=== PATIENT | female | born 2000 | race Caucasian/White ===

== ENCOUNTER 2023-04-05 17:58 | Emergency (ER) | payer OTHER ==
[2023-04-05 18:22] VITALS: TEMP 97.6
[2023-04-05] MEDS ORDERED: Sodium Chloride 0.9% 1000 ML 1,000 ML IV STA (18:51)
[2023-04-05] MEDS ORDERED: Sodium Chloride 0.9% 1000 ML 1,000 ML ONE (19:14)
[2023-04-05 19:17] LABS: Absolute Neutrophil Ct (ANC) 11.35 x10^3/uL (1.4-6.9); BASOPHIL % 0.3 % (0.0-0.4); Basophil (Absolute #) 0.04 x10^3/uL (0-0.4); Eosinophil % 1.1 % (0.00-5.0); Eosinophil (Absolute #) 0.17 x10^3/uL (0-0.5); Hematocrit 35.8 % (35-47); Hemoglobin 11.7 g/dL (12.0-16.0); IMMATURE GRAN # 0.35 x10^3u/L (0.00-0.03); IMMATURE GRAN % 2.4 % (0.00-0.4); Lymphocyte (Absolute #) 2.28 x10^3/uL (1.0-4.6); Lymphocytes % 15.4 % (24.0-44.0); Mean Cell Volume 90.2 fL (78-100); Mean Corpuscular Hemoglobin 29.5 pg (26-32); Mean Corpuscular Hgb Concent. 32.7 g/dL (32-36); Mean Platelet Volume 8.8 fL (7.5-11.0); Monocyte (Absolute #) 0.64 x10^3/uL (0.0-1.3); Monocytes % 4.3 % (0.0-12.0); Neutrophil % 76.5 % (36.0-66.0); Platelet Count 279 x10^3/uL (150-450); Red Blood Count 3.97 x10^6/uL (4.1-5.4); Red Cell Distribution Width 12.8 % (11.5-14.0); White Blood Count 14.8 x10^3/uL (4.0-10.5)
[2023-04-05 19:32] LABS: ALBUMIN 3.6 g/dL (3.5-5.0); ALKALINE PHOSPHATASE 73 U/L (38-126); ANION GAP 11.2 MEQ/L (5-15); BLOOD UREA NITROGEN 9 mg/dL (7-17); CHLORIDE 104 mmol/L (98-107); Calcium 8.8 mg/dL (8.4-10.2); Carbon Dioxide 25 mmol/L (22-30); Creatinine 1 0.55 mg/dL (0.52-1.04); EST GLOMERULAR FILTRATION RATE > 60.0 ML/MIN; Glucose 82 mg/dL (74-106); MAGNESIUM 1.8 mg/dL (1.6-2.3); Potassium 4.3 mmol/L (3.5-5.1); SGOT/AST 21 U/L (14-36); SGPT/ALT 18 U/L (0-35); SODIUM 136 mmol/L (137-145); Total Protein 6.7 g/dL (6.3-8.2)
[2023-04-05 19:37] LABS: Amphetamine,Urine NEGATIVE (NEGATIVE); Barbiturate,Urine NEGATIVE (NEGATIVE); Benzodiazepine,Urine NEGATIVE (NEGATIVE); Cocaine,Urine NEGATIVE (NEGATIVE); Methadone,Urine NEGATIVE (NEGATIVE); Opiate,Urine NEGATIVE (NEGATIVE); PCP,Urine NEGATIVE (NEGATIVE); THC,Urine POSITIVE (NEGATIVE)
[2023-04-05 19:40] VITALS: O2SAT 99
[2023-04-05 19:45] LABS: Appearance Cloudy (Clear); Bacteria Few /HPF (None Seen); Bilirubin Negative (Negative); Blood Negative (Negative); Epithelial Cells Moderate /HPF (None Seen); Glucose, Urine Negative (Negative); Ketones Negative (Negative); Leukocyte Esterase Small (Negative); Nitrite Negative (Negative); Protein,Urine Dip Trace (Negative); RBC 0-2 /HPF (0-5); WBC 21-50 /HPF (0-5)
[2023-04-05 19:46] LABS: ADD URINE CULTURE? YES (NO)
--- NOTE | 2023-04-05 20:11 | ERPHSYRPT ---
- History of Present Illness Time Seen by Provider: 04/05/23 18:15 Source: patient Exam Limitations: no limitations Patient Subjective Stated Complaint: Pt states that she had been outside and came in for about 15 min and was in the kitchen talking to her grandma helping h er [employer] school cafeteria when she turned around and everything went black and then she woke up on the floor with her grandparents over her Triage Nursing Assessment: Pt brought to the ER by her boyfriend, jeronimo wnl, rates head pain as 6/10, pt hit the back of her head on the floor when she passed out, pt states that she used to have syncopal episodes from age [age] and she lost weight and they had just stopped and she did have various testing done but no reasoning was found, pt states that she is now gaining weight due to the and is unsure if she is starting to have them again or not, states that she is having some pain in her lower left lateral abdominal side that was not there before, pulses normal, skin n/w/d, pt states that her grandmother took her blood pressure after she came to 111/56, pt's OB is Dr. Carr at [facility] Physician History: 22 years old 1 para 0 at 28 weeks gestation presented in the ER with chief complaint of syncopal episode. Patient reports she was outside, went in and was talking to her grandma in the kitchen and all of a sudden she started to fail blackening in front of her eyes and passed out. She did hit her head on the way down. She had no seizure-like activity noticed by family. She is complaining of dull aching occipital area headache on presentation which is improved. Denies any neck pain. No numbness tingling or focal weakness. Also complaining of some left hip area pain but no difficulty ambulation. Denies any vaginal bleeding or discharge. No abdominal pain otherwise. No nausea or vomiting. Denies any chest pain palpitations or shortness of breath before or after this episode. Patient does report smoking cigarettes and marijuana but no other drugs/alcohol. Allergies/Adverse Reactions: No Known Drug Allergies Allergy (Verified 04/05/23 18:22) Hx Influenza Vaccination/Date Given: No Hx Pneumococcal Vaccination/Date Given: No Travel Risk - International Travel Have you traveled outside of the country in past 3 weeks: No - Coronavirus Screening Are you exhibiting any of the following symptoms?: No Close contact with a COVID-19 positive Pt in past 14-21 Days: No - Vaccine Status Have you recieved a Covid-19 vaccination: No - Review of Systems Constitutional: No Symptoms Eyes: No Symptoms Ears, Nose, & Throat: No Symptoms Respiratory: No Symptoms Cardiac: No Symptoms Abdominal/Gastrointestinal: No Symptoms Genitourinary Symptoms: No Symptoms Musculoskeletal: Fall Skin: No Symptoms Psychological: No Symptoms Endocrine: No Symptoms Hematologic/Lymphatic: No Symptoms - Past Medical History Pertinent Past Medical History: Yes Cardiac History: Hypertension Psycho-Social History: Anxiety, Depression - Past Surgical History Past Surgical History: Yes - Social History Smoking Status: Current every day smoker Exposure to second hand smoke: Yes Drug Use: marijuana Patient Lives Alone: No - Female History Hx Now: Yes Gestational Age: 28.2 - Nursing Vital Signs Nursing Vital Signs: Initial Vital Signs Temperature 97.6 F 04/05/23 18:04 Pulse Rate 91 H 04/05/23 18:04 Blood Pressure 105/73 04/05/23 18:04 O2 Sat by Pulse Oximetry 98 04/05/23 18:04 Pain Scale Pain Intensity 6 - Physical Exam General Appearance: no apparent distress, alert Eye Exam: PERRL/EOMI, eyes nml inspection Ears, Nose, Throat Exam: normal ENT inspection, TMs normal, pharynx normal, moist mucous membranes Neck Exam: normal inspection, non-tender, supple, full range of motion, No meningismus, No limited range of motion, No midline tenderness Respiratory Exam: normal breath sounds, lungs clear Cardiovascular Exam: regular rate/rhythm, normal heart sounds Gastrointestinal/Abdomen Exam: soft, normal bowel sounds, No tenderness Back Exam: normal inspection, normal range of motion Neurologic Exam: alert, oriented x 3, cooperative, java groovy developer II-XII nml as tested, normal mood/affect, nml cerebellar function, nml station & gait, sensation nml, No motor deficits Skin Exam: normal color SpO2 Interpretation: normal SpO2: 99 O2 Delivery: Room Air - Course EKG Interpreted by Me: RATE ([id number]), Sinus Rhythm, NORMAL AXIS, NORMAL QRS Ordered Tests: Active Orders 24 hr Category Date Time Status Auto Air Conditioning Installer STAT Care 04/05/23 18:52 Completed EKG-ER Only STAT Care 04/05/23 18:51 Completed IV Insertion STAT Care 04/05/23 18:51 Completed Orthostatic Vital Signs STAT Care 04/05/23 18:51 Completed CHEST 1 VIEW (PORTABLE) Stat Exams 04/05/23 18:52 Completed HEAD WITHOUT CONTRAST [CT] Stat Exams 04/05/23 18:52 Completed OB LIMITED [US] Stat Exams 04/05/23 18:53 Completed CBC W DIFF Stat Lab 04/05/23 19:10 Completed CMP Stat Lab 04/05/23 19:10 Completed CULTURE,URINE Stat Lab 04/05/23 19:14 Received MAGNESIUM Stat Lab 04/05/23 19:10 Completed TROPONIN Q4H Lab 04/05/23 19:10 Completed UA W/RFX UR CULTURE Stat Lab 04/05/23 19:14 Completed Urine Triage Profile Stat Lab 04/05/23 19:14 Completed Medication Summary Discontinued Medications Generic Name Dose Route Start Last Admin Trade Name Freq PRN Reason Stop Dose Admin Cephalexin HCl 500 mg 04/05/23 20:48 04/05/23 20:51 Cephalexin Mh500 Mg Capsule PO 04/05/23 20:49 500 mg STAT ONE Administration Cephalexin HCl Confirm 04/05/23 20:49 Cephalexin Mh500 Mg Capsule Administered 04/05/23 20:50 Dose 500 mg .ROUTE .STK-MED ONE Sodium Chloride 1,000 mls @ 999 mls/hr 04/05/23 18:51 04/05/23 20:17 Sodium Chloride 0.9% 1000 Ml IV 04/05/23 19:51 Infused .Q1H1M STA Infusion Sodium Chloride Confirm 04/05/23 19:14 Sodium Chloride 0.9% 1000 Ml Administered 04/05/23 19:15 Dose 1,000 mls @ ud .ROUTE .STK-MED ONE Lab/Rad Data: Laboratory Result Diagrams 04/05/23 19:10 04/05/23 19:10 Laboratory Results 04/05/23 04/05/23 04/05/23 Range/Units 19:14 19:14 19:10 WBC (4.0-10.5) x10^3/uL RBC (4.1-5.4) x10^6/uL Hgb (12.0-16.0) g/dL Hct (35-47) % MCV (78-100) fL MCH (26-32) pg MCHC (32-36) g/dL RDW (11.5-14.0) % Plt Count (150-450) x10^3/uL MPV (7.5-11.0) fL Gran % (36.0-66.0) % Immature Gran % (Auto) (0.00-0.4) % Nucleat RBC Rel Count (0.00-0.1) % Eos # (Auto) (0-0.5) x10^3/uL Immature Gran # (Auto) (0.00-0.03) x10^3u/L Absolute Lymphs (auto) (1.0-4.6) x10^3/uL Absolute Monos (auto) (0.0-1.3) x10^3/uL Absolute Nucleated RBC (0.00-0.01) x10^3u/L Lymphocytes % (24.0-44.0) % Monocytes % (0.0-12.0) % Eosinophils % (0.00-5.0) % Basophils % (0.0-0.4) % Absolute Granulocytes (1.4-6.9) x10^3/uL Basophils # (0-0.4) x10^3/uL Sodium (137-145) mmol/L Potassium (3.5-5.1) mmol/L Chloride (98-107) mmol/L Carbon Dioxide (22-30) mmol/L Anion Gap (5-15) MEQ/L BUN (7-17) mg/dL Creatinine (0.52-1.04) mg/dL Estimated GFR ML/MIN Glucose (74-106) mg/dL Calcium (8.4-10.2) mg/dL Magnesium (1.6-2.3) mg/dL Total Bilirubin (0.2-1.3) mg/dL AST (14-36) U/L ALT (0-35) U/L Alkaline Phosphatase (38-126) U/L Troponin I < 0.012 (0.000-0.034) ng/mL Serum Total Protein (6.3-8.2) g/dL Albumin (3.5-5.0) g/dL Urine Color Yellow (Yellow) Urine Appearance Cloudy A (Clear) Urine pH 6.0 (4.6-8.0) Ur Specific [place] 1.020 (1.005-1.030) Urine Protein Trace A (Negative) Urine Glucose (UA) Negative (Negative) mg/dL Urine Ketones Negative (Negative) Urine Blood Negative (Negative) Urine Nitrite Negative (Negative) Urine Bilirubin Negative (Negative) Urine Urobilinogen 1.0 A (0.2) mg/dL Ur Leukocyte Esterase Small A (Negative) U Hyaline Cast (Auto) 3-5 A (0-2) /LPF Urine Microscopic RBC 0-2 (0-5) /HPF Urine Microscopic WBC 21-50 A (0-5) /HPF Ur Epithelial Cells Moderate A (None Seen) /HPF Urine Bacteria Few A (None Seen) /HPF Urine Culture Reflexed YES (NO) Urine Opiates Level NEGATIVE (NEGATIVE) Ur Methadone NEGATIVE (NEGATIVE) Urine Barbiturates NEGATIVE (NEGATIVE) Ur Phencyclidine (PCP) NEGATIVE (NEGATIVE) Urine Amphetamine NEGATIVE (NEGATIVE) U Benzodiazepine Level NEGATIVE (NEGATIVE) Urine Cocaine NEGATIVE (NEGATIVE) Urine Marijuana (THC) POSITIVE (NEGATIVE) 04/05/23 04/05/23 Range/Units 19:10 19:10 WBC 14.8 H (4.0-10.5) x10^3/uL RBC 3.97 L (4.1-5.4) x10^6/uL Hgb 11.7 L (12.0-16.0) g/dL Hct 35.8 (35-47) % MCV 90.2 (78-100) fL MCH 29.5 (26-32) pg MCHC 32.7 (32-36) g/dL RDW 12.8 (11.5-14.0) % Plt Count 279 (150-450) x10^3/uL MPV 8.8 (7.5-11.0) fL Gran % 76.5 H (36.0-66.0) % Immature Gran % (Auto) 2.4 H (0.00-0.4) % Nucleat RBC Rel Count 0.0 (0.00-0.1) % Eos # (Auto) 0.17 (0-0.5) x10^3/uL Immature Gran # (Auto) 0.35 H (0.00-0.03) x10^3u/L Absolute Lymphs (auto) 2.28 (1.0-4.6) x10^3/uL Absolute Monos (auto) 0.64 (0.0-1.3) x10^3/uL Absolute Nucleated RBC 0.00 (0.00-0.01) x10^3u/L Lymphocytes % 15.4 L (24.0-44.0) % Monocytes % 4.3 (0.0-12.0) % Eosinophils % 1.1 (0.00-5.0) % Basophils % 0.3 (0.0-0.4) % Absolute Granulocytes 11.35 H (1.4-6.9) x10^3/uL Basophils # 0.04 (0-0.4) x10^3/uL Sodium 136 L (137-145) mmol/L Potassium 4.3 (3.5-5.1) mmol/L Chloride 104 (98-107) mmol/L Carbon Dioxide 25 (22-30) mmol/L Anion Gap 11.2 (5-15) MEQ/L BUN 9 (7-17) mg/dL Creatinine 0.55 (0.52-1.04) mg/dL Estimated GFR > 60.0 ML/MIN Glucose 82 (74-106) mg/dL Calcium 8.8 (8.4-10.2) mg/dL Magnesium 1.8 (1.6-2.3) mg/dL Total Bilirubin 0.30 (0.2-1.3) mg/dL AST 21 (14-36) U/L ALT 18 (0-35) U/L Alkaline Phosphatase 73 (38-126) U/L Troponin I (0.000-0.034) ng/mL Serum Total Protein 6.7 (6.3-8.2) g/dL Albumin 3.6 (3.5-5.0) g/dL Urine Color (Yellow) Urine Appearance (Clear) Urine pH (4.6-8.0) Ur Specific [place] (1.005-1.030) Urine Protein (Negative) Urine Glucose (UA) (Negative) mg/dL Urine Ketones (Negative) Urine Blood (Negative) Urine Nitrite (Negative) Urine Bilirubin (Negative) Urine Urobilinogen (0.2) mg/dL Ur Leukocyte Esterase (Negative) U Hyaline Cast (Auto) (0-2) /LPF Urine Microscopic RBC (0-5) /HPF Urine Microscopic WBC (0-5) /HPF Ur Epithelial Cells (None Seen) /HPF Urine Bacteria (None Seen) /HPF Urine Culture Reflexed (NO) Urine Opiates Level (NEGATIVE) Ur Methadone (NEGATIVE) Urine Barbiturates (NEGATIVE) Ur Phencyclidine (PCP) (NEGATIVE) Urine Amphetamine (NEGATIVE) U Benzodiazepine Level (NEGATIVE) Urine Cocaine (NEGATIVE) Urine Marijuana (THC) (NEGATIVE) - Progress Progress: improved, re-examined Progress Note: 04/05/23 20:13 22 years old 1 para 0 at 28 weeks gestation presented in the ER with chief complaint of syncopal episode. Patient reports she was outside, went in and was talking to her grandma in the kitchen and all of a sudden she started to fail blackening in front of her eyes and passed out. She did hit her head on the way down. She had no seizure-like activity noticed by family. She is complaining of dull aching occipital area headache on presentation which is improved. Denies any neck pain. No numbness tingling or focal weakness. Also complaining of some left hip area pain but no difficulty ambulation. Denies any vaginal bleeding or discharge. No abdominal pain otherwise. No nausea or vomiting. Denies any chest pain palpitations or shortness of breath before or after this episode. Patient does report smoking cigarettes and marijuana but no other drugs/alcohol. 04/05/23 20:52 Patient has nonfocal neuro exam throughout her stay in the ER. No tenderness in cervical spines. No abdominal tenderness. Orthostatics negative. Given fluids, on reevaluation feeling better. Patient work-up showed white count of 14, fairly unremarkable chemistry. Does have UTI and started on Keflex. Chest x-ray negative for any acute cardiopulmonary findings reviewed by me, official report is pending. Ultrasound OB per preliminary report has single IUP with good heart tones and no signs of abruption/previa or any other acute findings. Patient chest x-ray and CT head are obtained after informed consent and shielded abdomen. CT head is pending, patient does not want to stay in the hospital at all. I do not know the exact cause of her syncope which needs further eval uation. She wants to leave without the results of CT head. Patient states I would follow-up with my OB and primary care and will return if has any worsening. She is not confused or altered at all. I have discussed in detail about risk of leaving without full work-up and without knowing any reason for this syncopal episode which would not delay only the diagnosis but also could lead to worsening of condition and could be harmful for her . She understands but wants to leave AGAINST MEDICAL ADVICE. She signed paperwork and left in stable condition. I will still send prescription of Keflex to her pharmacy. She is advised to return to ER for any worsening. Counseled pt/family regarding: lab results, diagnosis, need for follow-up, rad results, smoking cessation Medical Desision Making - Independent Historian Additional History obtained from: Spouse - Diagnostic Testing Diagnostic test were ordered, analyzed, and reviewed by me: Yes Radiological Interpretation: Interpreted by me, Reviewed by me - Risk of complications The pt has a mod risk of morbidity or mortality based on: Need for prescription drug management The pt has a high risk of morbidity or mortality based on: Decision regarding hospitilization or escalation of hosp level of care - Departure Departure Disposition: AMA Clinical Impression: Syncope and collapse, UTI in , with 28 completed weeks gestation Condition: Stable Critical Care Time: No Referrals: BRENDA DAVILA [Primary Care Provider] - Follow Up with PCP/3 days Instructions: Syncope (Fainting) (DC), Alcohol and drug use in , Ur inary tract infections in Additional Instructions: Drink plenty of fluids to keep yourself well-hydrated. Follow-up with primary care and OB for reevaluation early next week. Return to ER if again having syncopal episode, chest pain palpitations, shortness of breath, abdominal pain, vaginal bleeding or discharge etc. Prescriptions: Cephalexin Mh 500 mg [Keflex 500 mg] 500 mg PO TID #21 cap
--- NOTE | 2023-04-05 20:18 | XRAY ---
CLINICAL HISTORY:syncope COMPARISON:None. TECHNIQUE:An axial non-contrast CT scan of the brain was performed from the skull base to the high parietal region. FINDINGS: The visualized brain parenchyma shows a normal appearance. No focal parenchymal abnormalities are demonstrated. Jeter-white matter differentiation is maintained. No midline shifts or deformity. No intracerebral or extra axial hematoma. Normal size and configuration of the cerebral ventricles. Normal CT appearance of the posterior fossa structures namely the cerebellar hemispheres, brainstem, and cerebellar peduncles. The IACs are unremarkable. The cerebello-pontine angles are clear. The pituitary gland, the pineal gland, and the optic chiasm are unremarkable. The osseous structures in the skull base are unremarkable. No definite calvarium fractures. Scanned paranasal sinuses are clear. IMPRESSION: Non-enhanced CT study for the brain is unremarkable. Electronically Signed by: Jason Anaya MD. (04/05/2023 19:16:14 ARTIFICIAL INSEMINATION TECHNICIAN)
[2023-04-05 20:28] VITALS: BP 126/69; PULSE 78; RESP 15
[2023-04-05] MEDS ORDERED: KEFLEX 500 MG PO ONE (20:48)
[2023-04-05] MEDS ORDERED: KEFLEX 500 MG ONE (20:49)
--- NOTE | 2023-04-05 22:36 | XRAY ---
Indication: Syncope. Status post fall. Comparison: None Portable chest demonstrates normal heart, lungs, and bony thorax.
--- NOTE | 2023-04-05 22:38 | XRAY ---
Indication: Status post fall. 28 weeks . Limited OB ultrasound performed. Comparison: None Single intrauterine currently in cephalic presentation. heart rate 169 BPM. Anterior fundal placenta without abnormal retroplacental fluid. 4 quadrant JAGJIT is 12.5 cm, largest pocket 4.4 cm. Impression: Single viable intrauterine . No abnormal retroplacental fluid/hemorrhage or acute findings. Comment: Preliminary report was given.
== END 2023-04-05 21:08 | disposition left against medical advice (07) ==
LOC: EDBD 17:58 → ED 17:58
DX: R55 Syncope and collapse (principal); O23.43 Unspecified infection of urinary tract in pregnancy, third trimester; N39.0 Urinary tract infection, site not specified; Z3A.28 28 weeks gestation of pregnancy; R51.9 Headache, unspecified; M25.552 Pain in left hip; I10 Essential (primary) hypertension; Z28.310 Unvaccinated for COVID-19; Z72.0 Tobacco use
CPT/HCPCS: 36000; 36415; 70450; 71045; 76815; 80053; 80307; 81001; 83735; 84484; 85025; 87086; 93005; 93041; 96360; 99284; A9270-GY